=== PATIENT | male | born 1970 | race Caucasian/White ===

== ENCOUNTER 2019-01-06 08:28 | Day surgery (SDC) | payer OTHER ==
[~2019-01-06] VITALS: Ht 177.8 cm; Wt 71.2 kg
[2019-01-06 11:26] VITALS: Ht 177.8 cm; Wt 71.2 kg
--- NOTE | 2019-01-06 11:31 | PREAC ---
Date/Time of Note Date/Time of Note DATE: 01/06/19 TIME: 11:30 Anesthesia Eval and Record Evaluation Time Pre-Procedure Interview DATE: 01/06/19 TIME: 11:30 Age 48 Sex male NPO: 8 hrs Preoperative diagnosis ABDOMINAL PAIN Planned procedure COLONOSCOPY Past Medical History Past Medical History: Includes Pulm: Smoking Hx Surgery & Anesthesia Issues No known issue Meds Anticoagulation: No Beta Darlene within 24 hr: No Reason Beta Darlene not given: Pt. not on B-Darlene Reported Medications [none] No Conflict Check 01/06/19 Meds reviewed: Yes Allergies Coded Allergies: No Known Allergy (Verified Allergy, Unknown, 11/01/06) Allergies Reviewed: Yes Labs/Studies Labs Reviewed: Reviewed by anesthesiologist test: N/A Pre-procedure Exam Airway: Adequate mouth opening, Adequate thyromental dist Mallampati: Mallampati II Teeth: Normal Lung: Normal Heart: Normal ASA Physical Status ASA physical status: 2 Emergency: None Planned Anesthetic General/MAC: MAC Planned Pain Management Parenteral pain med Pre-operative Attestations Prior to commencing anesthesia and surgery, the patient was re-evaluated, there was verification of: *The patient's identity *The results of appropriate recent lab work and preoperative vital signs *The above evaluation not changing prior to induction *Anesthetic plan, risk benefits, alternative and complications discussed with patient/family; questions answered; patient/family understands, accepts and wishes to proceed. Omer Vásquez M.D. Jan 06, 2019 11:31
[2019-01-06] MEDS ORDERED: PROPOFOL 200 MG INJ ONE (11:38)
[2019-01-06] MEDS ORDERED: PROPOFOL 40 ML ONE (11:39)
[2019-01-06] MEDS ORDERED: LIDOCAINE 100 MG SYRINGE ONE (11:39)
--- NOTE | 2019-01-06 13:20 | PAC ---
Date/Time of Note Date/Time of Note DATE: 01/06/19 TIME: 13:20 Post-Anesthesia Notes Post-Anesthesia Note Last documented vital signs HR 67 RR 14 BP 114/76 T 98.6 Activity: WNL Respiratory function: WNL Cardiovascular function: WNL Mental status: Baseline Pain reasonably controlled: Yes Hydration appropriate: Yes Nausea/Vomiting absent: Yes Omer Vásquez M.D. Jan 06, 2019 13:20
== END 2019-01-06 14:48 | disposition home or self-care (01) ==
LOC: GIL 08:28
PROVIDERS: ATTEND Internal Medicine Gastroenterology
DX: D12.5 Benign neoplasm of sigmoid colon (principal); K64.9 Unspecified hemorrhoids; F17.200 Nicotine dependence, unspecified, uncomplicated
CPT/HCPCS: 45385; 88305; 88313; J2001